=== PATIENT | male | born 1945 | race Caucasian/White ===

== ENCOUNTER → 2016-09-03 | Outpatient (CLI) | payer OTHER ==
[~2016-09-03] MED LIST: ATOR-22 PO; AVD5 PO; EPP3/2 IM; HYT/2 PO
[2016-09-03 12:58] LABS: PROSTATE SPECIFIC ANTIGEN 0.896 ng/ml (0.000-4.000)
[2016-09-03 13:41] LABS: ESTIMATED AVERAGE GLUCOSE 120 mg/dl; HA1C FLAG Normal (Normal)
--- NOTE | 2016-09-10 09:25 | CODING QUERY MEDICAL NECESSITY ---
CQSUPPORTING DIAGNOSIS NEEDED A supporting diagnosis is required for the test/procedure performed on this patient in order for us to be reimbursed by the patient's insurance. Please provide a supporting diagnosis for the following test/procedure listed below next to the test name along with your signature. *If there is no additional diagnosis for this patient that would support the following test/procedure please document that below next to the test/procedure. Test(s)/Procedure(s) that require a supporting diagnosis: DOS 09/03/16 GLYCATED HEMOGLOBIN TEST Provider Signature: Date: Thank you Arpita Lira [facility] Information Management Once completed, please kindly fax back to [phone] For questions please call [phone]
== END | disposition home or self-care (01) ==
LOC: C.LABBFT 07:32
PROVIDERS: ATTEND Internal Medicine
DX: N40.0 Benign prostatic hyperplasia without lower urinary tract symptoms (principal); R73.03 Prediabetes

== ENCOUNTER → 2016-09-24 | Outpatient (CLI) | payer OTHER ==
[2016-09-24 13:24] LABS: BLOOD UREA NITROGEN 25 mg/dl (7-18); BUN/CREATININE RATIO 22.6 (10-20); CALCIUM 9.3 mg/dl (8.5-10.1); CARBON DIOXIDE 26 mmol/L (21-32); CHLORIDE 104 mmol/L (98-107); GLUCOSE 121 mg/dl (70-99); POTASSIUM 4.2 mmol/L (3.5-5.1); SODIUM 140 mmol/L (136-145)
== END | disposition home or self-care (01) ==
LOC: C.LABBFT 07:30
PROVIDERS: ATTEND Internal Medicine
DX: I10 Essential (primary) hypertension (principal); Z11.59 Encounter for screening for other viral diseases

== ENCOUNTER → 2017-03-03 | Outpatient (CLI) | payer OTHER ==
[2017-03-03 12:11] LABS: BASO % 0.7 %; BASO ABS # 0.04 K/uL (0-0.2); COMPLETE YES; EOS % 8.8 %; HEMATOCRIT 38.2 % (42-52); IG% 0.2 %; LYMPH % 26.8 %; LYMPH ABS # 1.59 K/uL (1.2-3.4); MEAN CELL VOLUME 82.7 fL (80-100); MEAN CORPUSCULAR HEMOGLOBIN 28.1 pg (25-34); MEAN PLATELET VOLUME 10.5 fL (7.4-10.4); MONO % 8.9 %; NEUT % 54.6 %; PLATELET COUNT 282 K/uL (130-400); RED BLOOD COUNT 4.62 M/uL (4.7-6.1); WHITE BLOOD COUNT 5.93 K/uL (4.8-10.8)
[2017-03-03 12:16] LABS: URINE APPEARANCE CLEAR (CLEAR); URINE BILIRUBIN NEG (NEG); URINE COLOR YELLOW; URINE NITRITE NEG (NEG); URINE SPECIFIC GRAVITY 1.026 (1.000-1.030); UROBILINOGEN NEG (NEG); ZZUR CULT IF INDIC CLEAN CATCH NO
[2017-03-03 12:23] LABS: MANUAL MICROSCOPIC REQUIRED? NO; REVIEW REQ? NO
[2017-03-03 12:32] LABS: ESTIMATED AVERAGE GLUCOSE 123 mg/dl; HA1C FLAG Normal (Normal)
[2017-03-03 12:38] LABS: ALT/SGPT 26 U/L (12-78); AST/SGOT 16 U/L (15-37); BLOOD UREA NITROGEN 29 mg/dl (7-18); BUN/CREATININE RATIO 28.8 (10-20); CARBON DIOXIDE 26 mmol/L (21-32); CHLORIDE 108 mmol/L (98-107); CHOLESTEROL 141 mg/dl (0-200); GLUCOSE 110 mg/dl (70-99); POTASSIUM 3.8 mmol/L (3.5-5.1); SODIUM 140 mmol/L (136-145); TRIGLYCERIDES 150 mg/dl (0-150); VERY LOW DENSITY LIPOPROT CALC 30 mg/dl
[2017-03-03 12:39] LABS: ALB/GLOB RATIO 1.2 (0.9-2); ALKALINE PHOSPHATASE 98 U/L (45-117); CHOLESTEROL/HDL RATIO 3.7; HDL CHOLESTEROL 38 mg/dl; LDL CHOLESTEROL CALCULATED 73 mg/dl
== END | disposition home or self-care (01) ==
LOC: C.LABBFT 07:21
PROVIDERS: ATTEND Internal Medicine
DX: R73.03 Prediabetes (principal); E78.5 Hyperlipidemia, unspecified

== ENCOUNTER → 2017-09-08 | Outpatient (CLI) | payer OTHER ==
[2017-09-08 12:36] LABS: BASO % 0.6 %; BASO ABS # 0.04 K/uL (0-0.2); EOS % 7.2 %; EOS ABS # 0.46 K/uL (0-0.5); HEMATOCRIT 39.9 % (42-52); HEMOGLOBIN 13.7 g/dL (14.0-18.0); IG# 0.02 K/uL (0.00-0.02); LYMPH % 18.4 %; LYMPH ABS # 1.17 K/uL (1.2-3.4); MEAN CELL VOLUME 82.1 fL (80-100); MEAN CORPUSCULAR HEMOGLOBIN 28.2 pg (25-34); MEAN CORPUSCULAR HGB CONC 34.3 g/dl (32-36); MEAN PLATELET VOLUME 10.8 fL (7.4-10.4); MONO % 10.1 %; MONO ABS # 0.64 K/uL (0.11-0.59); NEUT % 63.4 %; NEUT ABS # 4.03 K/uL (1.4-6.5); PLATELET COUNT 286 K/uL (130-400); RED CELL DISTRIBUTION WIDTH CV 14.2 % (11.5-14.5); RED CELL DISTRIBUTION WIDTH SD 42.2 fL (36.4-46.3); RETIC COUNT % 1.5 % (0.5-2.0); WHITE BLOOD COUNT 6.36 K/uL (4.8-10.8)
== END | disposition home or self-care (01) ==
LOC: C.LABBFT 07:06
PROVIDERS: ATTEND Internal Medicine
DX: D64.9 Anemia, unspecified (principal); R73.03 Prediabetes

== ENCOUNTER → 2017-09-15 | Outpatient (CLI) | payer OTHER ==
--- NOTE | 2017-09-15 11:26 | DIAGNOSTIC IMAGING REPORT ---
L SHOULDER MIN 2 VIEWS ROUTINE CLINICAL HISTORY: M25.512 Shoulder pain, left pain COMPARISON: None. DISCUSSION: There are findings of degenerative changes of the articular surface of the posterior lateral aspect of the humeral head. Mild inferior osteophytic reaction from the acromion. A component of impingement may be present. There are no soft tissue calcifications. There is no evidence for soft tissue swelling. IMPRESSION: Moderate degenerative change articular services left humeral head. Inferior osteophyte from the acromion most likely creating a component of impingement The above report was generated using voice recognition software. It may contain grammatical, syntax or spelling errors. Electronically signed by: Foster Farfan M.D. 09/15/2017 11:25 AM Dictated Date/Time: 09/15/2017 11:24 AM
== END ==
LOC: C.RAD1850 11:14
PROVIDERS: ATTEND Internal Medicine
DX: M25.712 Osteophyte, left shoulder (principal)

== ENCOUNTER → 2017-09-15 | Outpatient (CLI) | payer OTHER | END | disposition home or self-care (01) | LOC: C.LABBFT 10:06 | PROVIDERS: ATTEND Internal Medicine | DX: D64.9 Anemia, unspecified (principal) ==

== ENCOUNTER → 2017-10-12 | Outpatient (CLI) | payer OTHER ==
[2017-10-12 14:25] LABS: BLOOD UREA NITROGEN 29 mg/dl (7-18); CARBON DIOXIDE 27 mmol/L (21-32); GLUCOSE 108 mg/dl (70-99); POTASSIUM 3.8 mmol/L (3.5-5.1); SODIUM 138 mmol/L (136-145)
== END | disposition home or self-care (01) ==
LOC: C.LABBFT 07:15
PROVIDERS: ATTEND Physician Assistant
DX: Z01.818 Encounter for other preprocedural examination (principal); M75.42 Impingement syndrome of left shoulder

== ENCOUNTER → 2017-10-16 | Outpatient (CLI) | payer OTHER ==
[~2017-10-16] MED LIST changes: +GADAVIST IV PRN
--- NOTE | 2017-10-16 10:19 | DIAGNOSTIC IMAGING REPORT ---
LEFT SHOULDER INJECTION UNDER FLUOROSCOPIC GUIDANCE CLINICAL HISTORY: Left shoulder pain and impingement syndrome. Injection for MR arthrogram. PROCEDURE: The risks, benefits, and alternatives to the procedure were discussed with the patient. Written informed consent was obtained. The patient was placed supine on the fluoroscopy table, and a left shoulder injection was performed under fluoroscopic guidance. The area was prepped and draped in the usual sterile fashion. The skin and soft tissues anesthetized with local 1% lidocaine. The left shoulder joint was accessed utilizing a 22-gauge needle, and approximately 7 cc of a mixture of gadolinium contrast, Optiray 300, and saline was injected into the joint space under fluoroscopic guidance. There was normal distention of the capsule. The procedure was well tolerated and without immediate complication. The patient was then transferred to MRI for MR arthrography. FLUOROSCOPY TIME: 11 seconds. IMPRESSION: Successful injection of the left shoulder under fluoroscopic guidance. Electronically signed by: Neo Diallo M.D. 10/16/2017 10:17 AM Dictated Date/Time: 10/16/2017 10:17 AM
--- NOTE | 2017-10-16 11:10 | DIAGNOSTIC IMAGING REPORT ---
MR ARTHROGRAM OF THE LEFT SHOULDER CLINICAL HISTORY: Left shoulder pain. Impingement. COMPARISON STUDY: Radiographs of the left shoulder dated 09/15/2017. TECHNIQUE: Following the intra-articular administration of gadolinium contrast, MR arthrogram of the left shoulder was performed utilizing various T1 and T2 weighted sequences in the axial, sagittal, coronal planes. FINDINGS: Rotator cuff: There is tendinopathy with full-thickness rupture of the supraspinatus tendon. There is approximately 3 cm of musculotendinous retraction. There is tendinopathy with extensive high-grade partial-thickness tearing of the infraspinatus tendon. There is full-thickness tear seen at the leading edge which measures at least 10 mm in length. There is no retraction of the infraspinatus tendon. Mild tendinopathy seen involving the subscapularis tendon. The teres minor and subscapularis tendons appear intact. Contrast is present within the subacromial and subdeltoid bursal spaces. There is productive degenerative change seen at the acromioclavicular joint. Biceps tendon: The long head of the biceps tendon is normal in signal intensity and located within the bicipital groove. The anchor is maintained. Labrum: There is a SLAP tear of the glenoid labrum. Tearing is greatest anteriorly. Shoulder joint: Joint space is well distended with intra-articular contrast. The articular cartilage over the glenoid at the humeral head appears well maintained. Mild arthritic changes present in the greater tuberosity of the humeral head. No fracture is seen. Musculature and soft tissues: The musculature of the shoulder is normal in bulk and signal intensity. No atrophy is seen. Induration of the anterior soft tissues is related to the contrast injection. IMPRESSION: 1. There is full-thickness rupture of the supraspinatus tendon with at least 3 cm of musculotendinous retraction. 2. There is tendinopathy with extensive partial thickness tearing of the infraspinatus tendon. There is full-thickness tear at the leading edge of infraspinatus. No retraction is seen. 3. There is a SLAP tear of the labrum. 4. No muscular atrophy or edema is identified. Electronically signed by: Neo Diallo M.D. 10/16/2017 11:09 AM Dictated Date/Time: 10/16/2017 11:01 AM
== END | disposition home or self-care (01) ==
LOC: C.MRIBC 09:26
PROVIDERS: ATTEND Physician Assistant
DX: M75.42 Impingement syndrome of left shoulder (principal); S46.012A Strain of muscle(s) and tendon(s) of the rotator cuff of left shoulder, initial encounter; S43.432A Superior glenoid labrum lesion of left shoulder, initial encounter; X58.XXXA Exposure to other specified factors, initial encounter

== ENCOUNTER 2020-08-07 06:36 | Observation (INO) ==
--- NOTE | 2020-07-26 09:06 | PAT Medication Instructions ---
Medication Instructions Date of Service July 26, 2020 Home Medications epinephrine [EpiPen] 0.3 mg IM Q3H PRN ferrous sulfate [Iron (ferrous sulfate)] 325 mg PO QAM acetaminophen [Tylenol] 650 mg PO QAM amlodipine 10 mg PO PM atorvastatin 40 mg PO PM finasteride 5 mg PO PM hydrochlorothiazide 25 mg PO QAM irbesartan 300 mg PO QAM omeprazole 20 mg PO QAM Continue as directed epinephrine [EpiPen] 0.3 mg IM Q3H PRN (if needed) DO NOT take the morning of surgery ferrous sulfate [Iron (ferrous sulfate)] 325 mg PO QAM hydrochlorothiazide 25 mg PO QAM irbesartan 300 mg PO QAM Take morning of surgery With a small sip of water, OTHERWISE NOTHING TO EAT OR DRINK AFTER MIDNIGHT: acetaminophen [Tylenol] 650 mg PO QAM (okay to take up to 4 hours prior to surgery if needed) omeprazole 20 mg PO QAM Take evening before surgery amlodipine 10 mg PO PM atorvastatin 40 mg PO PM finasteride 5 mg PO PM Other Notes If you have any questions please call us at [phone] or [phone] or [phone] or [phone]
--- NOTE | 2020-07-26 09:10 | Anesthesiology Consultation ---
Date of Service July 26, 2020 Assessment & Plan (1) Encounter for pre-operative examination: Chart Review Chart Review: Pending: Refer to Additional Notes / Consult section (pending CT scan results and preop Covid testing ) and Patient seen in Pre Admission Testing - Sent note to PCP re: abnormal CXR. PCP scheduling patient for CT scan of chest - will await results Per PAT appt on 07/26/20, pt resides in [facility]. Traveled to [place] for medical appt. No other noted travel. No known Covid positive contacts or Covid related symptoms. No known Covid infection in the past 90 days. Scheduled for preop Covid testing 08/01/20= will await results. Left shoulder arthroscopy, biceps tenotomy 04/09/2018 = done under [facility] with LMA #5. Atraumatic LMA insertion. No anesthesia issues noted per anesthesia record. Teaching & Discussion Pre-Anesthesia Teaching/Discussion Notes: Instructed NPO after midnight before surgery,except medications with 15 cc of water. Medication instructions provided according to the PAT guidelines. History Surgery Operation Date: 08/07/20 08:50 Proposed Procedures p Left Total Knee Arthroplasty - Rupesh Dowell MD Height/Weight Height: 5 ft 11 in Weight: 101.1 kg Allergies Allergy/AdvReac Type Severity Reaction Status Date / Time bee venom protein (honey bee) Allergy Severe ANAPHYLAXIS Verified 08/07/20 06:52 Medications Home Medications Medication Instructions Recorded Confirmed Last Taken epinephrine [EpiPen] 0.3 mg IM Q3H PRN 03/10/18 08/07/20 Unknown ferrous sulfate [Iron (ferrous 325 mg PO QAM 06/15/18 08/07/20 08/06/20 08:00 sulfate)] acetaminophen [Tylenol] 650 mg PO QAM 07/25/20 08/07/20 08/06/20 08:00 amlodipine 10 mg PO PM 07/25/20 08/07/20 08/06/20 21:00 atorvastatin 40 mg PO PM 07/25/20 08/07/20 08/06/20 21:00 finasteride 5 mg PO PM 07/25/20 08/07/20 08/06/20 21:00 hydrochlorothiazide 25 mg PO QAM 07/25/20 08/07/20 08/06/20 08:00 irbesartan 300 mg PO QAM 07/25/20 08/07/20 08/06/20 08:00 omeprazole 20 mg PO QAM 07/25/20 08/07/20 08/06/20 08:00 Active Medications Generic Name Dose Route Start Last Admin Trade Name Joelle PRN Reason Stop Dose Admin Acetaminophen 1,000 mg 08/07/20 06:00 08/07/20 07:17 Acetaminophen 500 Mg Tab PO 08/07/20 18:00 1,000 mg PREOP CAMILO Administration Famotidine 20 mg 08/07/20 06:00 08/07/20 07:16 Famotidine 20 Mg Tab PO 08/07/20 18:00 20 mg PREOP CAMILO Administration Gabapentin 300 mg 08/07/20 06:00 08/07/20 07:17 Gabapentin 300 Mg Cap PO 08/07/20 18:00 300 mg PREOP CAMILO Administration Lactated Ringer's 1,000 mls @ 15 mls/hr 08/07/20 06:00 08/07/20 07:16 Lr IV 08/07/20 18:00 15 mls/hr .Q24H CAMILO Administration Lactated Ringer's 1,000 mls @ 60 mls/hr 08/07/20 06:00 08/07/20 07:18 Lr IV 08/07/20 22:39 Not Given .[id number] CAMILO Past Medical History Medical History BPH (benign prostatic hyperplasia) GERD (gastroesophageal reflux disease) Well controlled and stable Take Omeprazole secondary to previously taking NSAIDs Hyperlipidemia Hypertension Lyme disease - TREATED- NO RESIDUAL ISSUES Multiple sclerosis DX . PT BELIEVES HE WAS MISDIAGNOSED. NO SYMPTOMS AT PRESENT. DOES NOT TAKE MEDICATION. DOES NOT FOLLOW W/ NEUROLOGIST. FEELS SYMPTOMS WERE RELATED TO LYMES DISEASE RATHER THAN MS Seen for wellness exam by PCP 05/28/20- no mention of MS Osteoarthritis Pre-diabetes DIET CONTROL Tinnitus RARE Exercise / Class Metabolic Activity II 4-5 Yardwork/Stairs/Walk up hill (ONE FLIGHT OF STAIRS - NO CHEST PAIN OR SOB ) Past Family History Family History Grandmother (Maternal) Family history of diabetes mellitus Other No family history of adverse response to anesthesia Denies family history of Prostate cancer Myocardial infarction Breast cancer Colorectal cancer Pulmonary embolism Past Surgical History Surgical History History of appendectomy History of colonoscopy W/ POLYPECTOMY History of esophagogastroduodenoscopy (EGD) History of repair of left rotator cuff History of tonsillectomy History of tooth extraction History of total right knee replacement (TKR) History of umbilical hernia repair History of wisdom tooth extraction Hx of vasectomy Past Anesthesia History No Hx of Anesthesia Complications and No Family Hx of Anesthesia Complications History of PONV No Hx of PONV and No Hx of Motion Sickness Social History Smoking Status: Never smoker Do You Dip or Chew Tobacco: No Hx Alcohol Use: Yes Alcohol type: hard liquor alcohol intake frequency: a few times a week Hx Substance Use: No substance use type: does not use Review of Systems Patient denies chest pain, shortness of breath, dyspnea on exertion, cough, wheezing, palpitations. No hx of seizures, stroke, NE, apnea/snoring. No hx of blood clots or blood transfusions Physical Exam Vital Signs Last Vital Signs Temp 37.3 C 08/07/20 06:59 Pulse 84 08/07/20 06:59 Resp 16 08/07/20 06:59 BP 149/84 H 08/07/20 06:59 Pulse Ox 95 08/07/20 06:59 VITALS BP 133/81 P 70 TEMP 98.0 SP02 96% RESP 16 Constitutional no acute distress ENMT Mouth: no TMJ clicking Thyromental Distance: > or= 3.5 Finger Breadths (3.5) Mallampati Class: II Top and bottom partial dentures Caps to top front teeth. Neck neck extension not limited Respiratory normal respiratory effort; no respiratory distress Auscultation: lungs clear to auscultation bilaterally; no wheezes Cardiovascular Rate/Rhythm: regular rate and regular rhythm Heart Sounds: no murmur Vessels: no carotid bruit Musculoskeletal Spine: + pain with cervical ROM (mild stiffness ) Extremities: extremities normal to inspection Psychiatric Orientation: alert Testing Laboratory Results 07/26/20 09:51 07/26/20 09:57 PT 10.1 Seconds (9.0-12.0) 07/26/20 09:51 INR 1.0 (0.9-1.1) 07/26/20 09:51 APTT 25.5 Seconds (21.0-31.0) 07/26/20 09:51 Blood Type AB Positive 07/26/20 09:51 Antibody Screen NEGATIVE 07/26/20 09:51 05/22/20= HGB A1C: 5.7 Electrocardiogram Date: 07/26/20 Findings: + NSR @ (66bpm) RBBB. Chest X-Ray Date: 07/26/20 Findings: + NAD and + cardiomegaly Chronic interstitial thickening is similar to previous. Scarring/atelectasis is noted at the lung bases. Question an 11 mm nodule projecting over the left upper chest. This overlies 2 ribs and may be artifactual. Correlation with a chest CT is recommended for further assessment.
--- NOTE | 2020-07-26 10:26 | XRay Report ---
SINGLE VIEW CHEST CLINICAL HISTORY: Preoperative examination FINDINGS: An AP, portable, upright chest radiograph is compared to study dated 08/30/2014. The heart is enlarged noting atherosclerotic calcification of the thoracic aorta. The pulmonary vasculature is no ncongested. Chronic interstitial thickening is similar to previous. Scarring/atelectasis is noted at the lung bases. No airspace consolidation or pleural effusion is identified. Question an 11 mm nodule projecting over the left upper chest. No pneumothorax is seen. The skeletal structures are osteopeni c. The bony thorax is grossly intact. IMPRESSION: 1. Cardiomegaly with no active disease in the chest. 2. Question an 11 mm nodule projecting over the left upper chest. This overlies 2 ribs and may be art ifactual. Correlation with a chest CT is recommended for further assessment. ACT 112: Positive. There are findings on this exam that require communication between the performing entity and the patient following Patient Test Result Information Act ([place] Act 112) guidelines. Electronically signed by: Neo Diallo M.D. 07/26/2020 10:24 AM
[2020-07-26 11:32] LABS: Basophils # (auto) 0.03 K/uL (0-0.2); Basophils % (auto) 0.4 %; Eosinophils # (auto) 0.34 K/uL (0-0.5); Eosinophils % (auto) 4.5 %; Hematocrit (blood only) 39.8 % (42-52); Hemoglobin 13.8 g/dL (14.0-18.0); Immature Granulocytes # (auto) 0.02 K/uL (0.00-0.02); Immature Granulocytes % (auto) 0.3 %; Lymphocytes # (auto) 1.04 K/uL (1.2-3.4); Lymphocytes % (auto) 13.7 %; Mean Corpuscular Hemoglobin 29.4 pg (25-34); Mean Corpuscular Hgb Conc 34.7 g/dL (32-36); Mean Corpuscular Volume 84.9 fL (80-100); Mean Platelet Volume 11.2 fL (7.4-10.4); Monocytes # (auto) 0.65 K/uL (0.11-0.59); Monocytes % (auto) 8.6 %; Neutrophils # (auto) 5.49 K/uL (1.4-6.5); Neutrophils % (auto) 72.5 %; Platelet Count 300 K/uL (130-400); RDW Coefficient of Variation 13.6 % (11.5-14.5); RDW Standard Deviation 41.6 fL (36.4-46.3); Red Blood Count 4.69 M/uL (4.7-6.1); White Blood Count 7.57 K/uL (4.8-10.8)
[2020-07-26 11:44] LABS: Partial Thromboplastin Time 25.5 Seconds (21.0-31.0); Prothrombin Time 10.1 Seconds (9.0-12.0)
[2020-07-26 13:48] LABS: BUN Creatinine Ratio 20.8 (10-20); Blood Urea Nitrogen 23 mg/dl (7-18); C Reactive Protein < 0.29 mg/dl (0-0.29); Carbon Dioxide 26 mmol/L (21-32); Chloride 106 mmol/L (98-107); Creatinine Clr Calc Pharmacy 72.7 ml/min; Est GFR (Non-African American) 67.3; Glucose 112 mg/dl (70-99); Potassium 3.9 mmol/L (3.5-5.1); Sodium 138 mmol/L (136-145)
--- NOTE | 2020-07-27 05:39 | Electrocardiogram Report ---
Test Reason : Blood Pressure : / mmHG Vent. Rate : 066 BPM Atrial Rate : 066 BPM P-R Int : 200 ms QRS Dur : 156 ms QT Int : 446 ms P-R-T Axes : 058 -13 004 degrees QTc Int : 467 ms Normal sinus rhythm Right bundle branch block Abnormal ECG When compared with ECG of 15-MAR-2018 11:16, No significant change was found Confirmed by Loco Yuen ([id number]) on 07/27/2020 5:39:13 AM Referred By: Rupesh Dowell Confirmed By:Loco Yuen
[~2020-08-07 06:36] MED LIST changes: +ACETAMINOPHEN 500 MG TAB PO SCH; -ATOR-22 PO; -AVD5 PO; +BUPIVACAINE 0.25% 30 ML VIAL ONE; +BUPIVACAINE 0.5 % 5 MG/1 ML PF 10ML VIAL ONE; +BUPIVACAINE LIPOSOME/PF 266 MG, BUPIVACAINE/EPINEPHRINE 50 ML, SODIUM CHLORIDE 0.9% 30 ... INFIL SCH; -EPP3/2 IM; +FAMOTIDINE 20 MG TAB PO SCH; +GABAPENTIN 300 MG CAP PO SCH; -GADAVIST IV PRN; -HYT/2 PO; +LR 500ML BOLUS, THEN 15ML/HR IV SCH; +LR 60ML/HR IV SCH; +TRANEXAMIC ACID 1,000 MG x 1 **For Topical Use TOP SCH; +ceFAZolin 2000MG 2,000 MG/15 ML SYR IV SCH
[2020-08-07] MEDS ORDERED: TRANEXAMIC ACID / 0.7% NACL 1000MG/100ML BAG IV ONE (06:47)
--- NOTE | 2020-08-07 06:57 | History & Physical Bridge Note ---
Date of Service August 07, 2020 History & Physical Bridge Note I have examined the patient, reviewed the History & Physical and in the interval since the performance of the History & Physical I have noted the following changes of clinical significance: no changes noted
[2020-08-07] MEDS ORDERED: fentaNYL citrate 100 MCG/2 ML VIAL ONE ×2 (08:34→09:34)
[2020-08-07] MEDS ORDERED: MIDAZOLAM HCL 1 MG/ML 2ML VIAL ONE (08:34)
[2020-08-07] MEDS ORDERED: BACITRACIN INJ 50,000 UNIT VIAL ONE (08:38)
[2020-08-07] MEDS ORDERED: EPINEPHrine INJ 1 MG/ML AMP ONE (08:38)
[2020-08-07] MEDS ORDERED: SODIUM CHLORIDE 0.9% PF 50 ML VIAL ONE (08:38)
[2020-08-07] MEDS ORDERED: BUPIVACAINE LIPOSOME 1.3% 266 MG/20 ML VIAL ONE (08:38)
[2020-08-07] MEDS ORDERED: BUPIVACAINE 0.25% 30 ML VIAL ONE (08:38)
[2020-08-07] MEDS ORDERED: PROPOFOL IV EMULSION 10 MG/ML 20 ML VIAL IV ONE (08:39)
[2020-08-07] MEDS ORDERED: HYDROmorphone INJ 1 MG/ML SYRINGE IV PRN (08:50)
[2020-08-07] MEDS ORDERED: ONDANSETRON INJ 2 MG/ML 2 ML VIAL IV PRN ×2 (08:50→12:19)
[2020-08-07] MEDS ORDERED: ATROPINE SULFATE 0.1 MG/ML 10ML SYR IV PRN (08:50)
[2020-08-07] MEDS ORDERED: ePHEDrine sulfate 50 MG/ML AMP IV PRN (08:50)
[2020-08-07] MEDS ORDERED: LIDOCAINE HCL 2% 2 ML VIAL/AMP(20MG/ML) INFIL ONE (09:28)
[2020-08-07] MEDS ORDERED: ONDANSETRON INJ 2 MG/ML 2 ML VIAL ONE (09:28)
[2020-08-07] MEDS ORDERED: PHENYLEPHRINE HCL 10 MG/ML VIAL ONE (09:49)
--- NOTE | 2020-08-07 10:57 | Operative Report ---
Post Operative Report Pre & Post Diagnosis Operation Date: 08/07/20 08:50 Pre-Op Diagnosis: Left Knee Osteoarthritis Post-Op Diagnosis: Left Knee Osteoarthritis I identified the patient and participated in the time-out.: Yes Procedure Operation Date: 08/07/20 08:50 Actual Procedures p Left Total Knee Arthroplasty, Cemented(Left) - Rupesh Dowell MD Surgeon Rupesh Dowell MD Fermentation Engineer REBECCA Steven Estimated Blood Loss 50 Findings Consistent with Post-Op Diagnosis Operative findings revealed advanced left knee DJD. He had extensive and diffuse grade 4 changes of the medial and patellofemoral compartments. The lateral compartment was fairly well spared. He had a fixed varus deformity to his knee. Moderate-sized joint effusion. Osteophytes in the medial and patellofemoral compartments. Fluids 600 cc. Specimens Left knee sent for pathology. Drains 9. Anesthesia Type General Regional Complications none Disposition Accompanied Patient To Recovery: No Disposition: Recovery Room Indications Patient is a 75-year-old fairly active gentleman said a long history of knee problems. He has right knee replaced about 8 years ago. Over the past several years he is developed increased pain discomfort in his left knee. Is been through extensive conservative treatment which has not helped in the past. He elected to total knee arthroplasty. Description of Procedure Operative implants consist of: 1 Biomet Vanguard size 70 left posterior stabilized femoral component. 2. Biomet size 79 tibial tray. 3. 12 mm posterior stabilized polyethylene insert. 4. 34 x 8 and half all polypatella. The patient was taken to the operating identified and placed on the operating table supine position but all contact areas were properly padded. IV antibiotics tried by anesthesia team. A general anesthetic was implemented at the patient's request. And abductor canal block had been provided in the holding area. A left thigh turn was then placed. Left lower extremities and prepped draped in usual sterile fashion. The left leg was elevated exsanguinated with use of an Esmarch and tourniquet placed at 300 mmHg. An anterior approach to the left knee was then performed to longitudinal incision centered over the patella. Sharp dissection was carried through subcutaneous tissue down the extensor mechanism. A medial parapatellar arthrotomy incision was made. Some subperiosteal dissection was carried out medially. The fat pad was resected from each patella tendon. Lateral patellofemoral ligament was released. Patella subluxated laterally knee was flexed with the osteophyte taken off distal femur. The ACL and PCL were then released from the distal femur and the tibia subluxated anteriorly. The external tibial alignment jig was then placed in the interface the tibia and adjusted 16 mm medially. Proximal tibial cut was made remove about a millimeter bone from most efficient aspect medial side. This did take a fairly large piece off laterally. The tibia sized to a size 79. Some osteophytes were taken off medial and posterior medially. Attention drawn the femur. The distal femur turned the sharp drill. Intramedullary canal was suction. A left 6 degree valgus cutting guide was placed. Distal femoral cutting block was pinned in place. Distal femoral cut was made to take an additional 3 mm bone off distal femur. The femur was then sized to a size 70. The AP cutting block was pinned parallel to the epicondylar axis which was 4 degrees of external rotation. The anterior cut, anterior chamfer, posterior cut, posterior chamfer cuts were made. Box cutting guide was placed and adjusted slightly laterally. The box cut was made. The knee was flexed. The remnants of medial lateral menisci were excised. The osteophytes were taken off the posterior aspect of the femur. A trial femoral component was placed. The tibial tray was pinned in maximum external rotation and the drill and stem punch were used to create defect in proximal tibia for the tibial tray. Knee was then trialed with a 12 mm insert fit most appropriately. Attention drawn the patella. The patella was cleaned of all soft tissues. Patella thickness measured 24 mm in thickness was cut down to 14. Was sized to a size 34 patella. Lug holes were drilled for the 34 patella. The lateral osteophyte was removed. Patella button was placed. Knee was taken through range of motion and the patella tracked nicely with no thumbs test. Attention drawn to placing permanent components. All trial components were removed. A bone plug was placed in the distal femur limit blood loss. A double batch Palacos G cement was mixed. A Biomet Vanguard size 70 left posterior stabilized femoral component, size 79 tibial tray, 12 mm posterior stabilized polyethylene insert, and a 34 x 8 and half all polypatella were then cemented in place. Knee was brought out in full extension total cement hardened. Final cement checkup then performed. The pericapsular tissues were injected with total 100 cc of combination of 20 cc of Exparel, 30 cc normal saline, 50 cc of quarter percent Marcaine with epinephrine. Patient did receive 1 g tranexamic acid. The tourniquet was then let down for final tourniquet time of 61 minutes. Hemostasis assured use electrocautery. The extensor Maxon was then closed with a combination 1 PDS suture #1 Vicryl suture in [id number] fashion. Extensor mechanism checked found to be intact with subcutaneous tissue then closed with 2 Dexon suture in a buried interrupted fashion skin was closed skin tamiko. Leg was then cleaned dried and a sterile dressing both Xeroform, 4 x 4's, sterile cast padding, Denilson bandage were applied. Patient was then brought out of general anesthesia and transferred to the recovery room in stable condition. Patient tolerated procedure well and there were no complications. Fan Steven, my physician client account assistant, was present for the entire procedure. His assistance was essential and required for appropriate patient positioning, prepping and draping, surgical exposure, performing the technical details of the operation, placement the implants, closure of the wound, and placement of the sterile bandage. I attest to the content of the Intraoperative Record and any orders documented therein. Any exceptions are noted below.
--- NOTE | 2020-08-07 11:07 | XRay Report ---
XR knee LT 1 or 2V routine CLINICAL HISTORY: Surgical Post Op COMPARISON: None. DISCUSSION: There are postsurgical changes of a total left knee arthroplasty and patellar resurfacing . Femoral and tibial components appear well seated. Overlying surgical drains are evident. There is g as within the soft tissues consistent with recent surgery IMPRESSION: Postsurgical changes of a total left knee arthroplasty. ACT 112: Negative or not required by law. Electronically signed by: Michael Andino M.D. 08/07/2020 11:05 AM
[2020-08-07] MEDS: fentaNYL citrate 100 MCG/2 ML VIAL IV PRN ×2 (11:26→11:31)
[2020-08-07] MEDS ORDERED: traMADol HCL 50 MG TABLET PO PRN (12:19)
[2020-08-07] MEDS ORDERED: METOCLOPRAMIDE HCL INJ 5 MG/ML 2 ML VIAL IV PRN (12:19)
[2020-08-07] MEDS ORDERED: MAGNESIUM HYDROXIDE SUSP 30 ML UDC PO PRN (12:19)
[2020-08-07] MEDS ORDERED: ALUMINUM/MAGNESIUM SUSP 30 ML UDC PO PRN (12:19)
[2020-08-07] MEDS ORDERED: bisacodyL 10 MG SUPP PR PRN (12:19)
[2020-08-07] MEDS ORDERED: NALOXONE HCL 0.4 MG/1 ML VIAL/CARP IV PRN (12:19)
[2020-08-07] MEDS ORDERED: HYDROmorphone INJ 0.5 MG/0.5 ML SYR IV PRN (12:19)
--- NOTE | 2020-08-07 12:25 | Anesthesiology Progress Note ---
Date of Service August 07, 2020 Anesthesia Post Procedure Vital Signs Vital Signs: Temp Pulse Pulse Resp BP Pulse Ox 08/07/20 12:00 36.6 C 79 18 129/80 100 08/07/20 11:40 76 14 120/69 98 08/07/20 11:30 72 19 126/71 98 08/07/20 11:20 68 12 118/70 98 08/07/20 11:10 67 16 118/71 99 08/07/20 11:00 36.3 C L 73 14 115/75 97 08/07/20 06:59 37.3 C 84 16 149/84 H 95 Pain Intensity Left Knee: Pain Intensity: 4 Transfer of Care Handoff Completed per policy Notes Mental Status: alert / awake / arousable and participated in evaluation Nausea / Vomiting: adequately controlled Pain: adequately controlled Airway Patency, RR, SpO2: stable & adequate BP & HR: stable & adequate Hydration State: stable & adequate Neuraxial Anesthesia: was administered and sensory block is resolving Anesthetic Complications: no major complications apparent and Pt Satisfied with anesthetic care
--- NOTE | 2020-08-07 12:29 | Anesthesiology Progress Note ---
Date of Service August 07, 2020 Anesthesia Post Procedure Vital Signs Vital Signs: Temp Pulse Pulse Resp BP Pulse Ox 08/07/20 12:00 36.6 C 79 18 129/80 100 08/07/20 11:40 76 14 120/69 98 08/07/20 11:30 72 19 126/71 98 08/07/20 11:20 68 12 118/70 98 08/07/20 11:10 67 16 118/71 99 08/07/20 11:00 36.3 C L 73 14 115/75 97 08/07/20 06:59 37.3 C 84 16 149/84 H 95 Pain Intensity Left Knee: Pain Intensity: 4 Transfer of Care Handoff Completed per policy Notes Mental Status: alert / awake / arousable and participated in evaluation Patient Amnestic to Procedure: Yes Nausea / Vomiting: adequately controlled Pain: adequately controlled Airway Patency, RR, SpO2: stable & adequate BP & HR: stable & adequate Hydration State: stable & adequate Anesthetic Complications: no major complications apparent and Pt Satisfied with anesthetic care
[2020-08-07] MEDS: SODIUM CHLORIDE 0.9% 1000ML 1,000 ML IV SCH ×2 (12:53→22:51)
[2020-08-07] MEDS: KETOROLAC TROMETHAMINE 15 MG/ML VIAL IV SCH ×3 (12:58→23:27)
[2020-08-07] MEDS: ACETAMINOPHEN 500 MG TAB PO SCH ×2 (13:47→21:11)
[2020-08-07] MEDS: TAMSULOSIN HCL 0.4 MG CAP PO SCH (13:47)
[2020-08-07] MEDS: ceFAZolin 2000MG 2,000 MG/15 ML SYR IV SCH ×2 (16:02→23:27)
[2020-08-07] MEDS ORDERED: TRANEXAMIC ACID / 0.7% NACL 1,000 MG/100 ML BAG IV SCH (16:50)
[2020-08-07] MEDS: ASCORBIC ACID 500 MG TAB PO SCH (17:10)
[2020-08-07] MEDS: FERROUS GLUCONATE 324 MG TAB PO SCH (17:11)
[2020-08-07] MEDS ORDERED: ATORVASTATIN 40 MG TAB PO SCH (21:00)
[2020-08-07] MEDS ORDERED: amLODIPine BESYLATE 5 MG TAB PO SCH (21:00)
[2020-08-07] MEDS ORDERED: FINASTERIDE 5 MG TAB PO SCH (21:00)
[2020-08-07] MEDS ORDERED: SENNA 8.6 MG TAB PO SCH (21:00)
[2020-08-07] MEDS: ASPIRIN 81 MG ECTAB PO SCH (21:11)
[2020-08-07] MEDS: DOCUSATE SODIUM 100 MG CAP PO SCH (21:11)
[2020-08-08] MEDS: ACETAMINOPHEN 500 MG TAB PO SCH ×2 (05:48→14:58)
[2020-08-08] MEDS: KETOROLAC TROMETHAMINE 15 MG/ML VIAL IV SCH ×2 (05:48→11:40)
[2020-08-08 07:10] LABS: Hematocrit (blood only) 33.8 % (42-52); Hemoglobin 11.8 g/dL (14.0-18.0); Mean Corpuscular Hemoglobin 29.6 pg (25-34); Mean Corpuscular Hgb Conc 34.9 g/dL (32-36); Mean Corpuscular Volume 84.7 fL (80-100); Mean Platelet Volume 10.1 fL (7.4-10.4); Platelet Count 232 K/uL (130-400); RDW Coefficient of Variation 13.5 % (11.5-14.5); RDW Standard Deviation 41.1 fL (36.4-46.3); Red Blood Count 3.99 M/uL (4.7-6.1); White Blood Count 7.34 K/uL (4.8-10.8)
[2020-08-08 07:39] LABS: BUN Creatinine Ratio 18.9 (10-20); Creatinine Clr Calc Pharmacy 65.3 ml/min; Est GFR (African American) 67.9; Est GFR (Non-African American) 58.6; Potassium 4.1 mmol/L (3.5-5.1)
[2020-08-08] MEDS ORDERED: dexAMETHasone 4 MG TAB PO SCH (08:00)
[2020-08-08] MEDS: ASPIRIN 81 MG ECTAB PO SCH (08:56)
[2020-08-08] MEDS: TAMSULOSIN HCL 0.4 MG CAP PO SCH (08:56)
[2020-08-08] MEDS: DOCUSATE SODIUM 100 MG CAP PO SCH (08:57)
[2020-08-08] MEDS: ASCORBIC ACID 500 MG TAB PO SCH (08:58)
[2020-08-08] MEDS: FERROUS GLUCONATE 324 MG TAB PO SCH (08:58)
[2020-08-08] MEDS ORDERED: NON-FORMULARY MEDICATION (Ferrous Sulfate [Iron (Ferrous Sulfate)] 325 mg (65 mg iron) Tab PO SCH (09:00)
[2020-08-08] MEDS ORDERED: hydroCHLOROthiazide 25 MG TAB PO SCH (09:00)
[2020-08-08] MEDS ORDERED: PANTOprazole 40 MG TAB PO SCH (09:00)
[2020-08-08] MEDS ORDERED: MULTIVITAMIN TAB PO SCH (09:00)
[2020-08-08] MEDS ORDERED: IRBESARTAN 150 MG TAB PO SCH (09:00)
--- NOTE | 2020-08-08 17:40 | Progress Notes ---
DATE: 08/08/2020 SUBJECTIVE: A 75-year-old gentleman postop day 1 from a left knee replacement. He is doing well. Moderate amount of pain, but controlled with pain medicines. Therapy is going well. He is hoping to go home. OBJECTIVE: VITAL SIGNS: Temperature 36.8. Vital signs stable. GENERAL: Shows a pleasant, middle-aged male. He is sitting up in his bedside chair, looks pretty comfortable. LUNGS: Clear to auscultation. HEART: Has a regular rate and rhythm. ABDOMEN: Soft, nontender, nondistended. EXTREMITIES: Grossly neurovascularly intact except as follows: Examination of the left leg reveals the dressing to be clean, dry, and intact. He can dorsiflex and plantarflex his foot appropriately. He has got brisk refill. He is neurologically intact. LABORATORY DATA: Hemoglobin 11.8. Hematocrit 33.8. Electrolytes are stable. ASSESSMENT: A 75-year-old gentleman postoperative day 1 from left knee replacement, doing pretty well. Pain is controlled. He is neurologically intact. PLAN: 1. DVT prophylaxis including thigh-high TEDs, SCDs, and aspirin twice a day. 2. PT/OT. Weightbear as tolerated. Left total knee protocol. 3. Pain control, doing okay with current pain regimen. 4. Disposition: Plan to discharge to home. He is going to go to outpatient therapy.
--- NOTE | 2020-08-13 06:58 | Discharge Summary ---
Date of Service August 13, 2020 Discharge Data Consultations 08/07/20 12:19 Consult Case Management - Discharge Planning Routine Procedures Performed Operation Date: 08/07/20 08:50 Actual Procedures p Left Total Knee Arthroplasty, Cemented(Left) - Rupesh Dwoell MD Hospital Course (1) Status post total left knee replacement: This patient is a 75 year old male admitted on 08/07/20 and underwent total knee arthroplasty. He tolerated the procedure well and there were no complications. Transferred to the PACU post op and later to the orthopedic floor for further care. He was given ancef for antibiotic prophylaxis. He was also given JOCELYNE stockings, SCDs, and aspirin for DVT prophylaxis. Hemoglobin, padmini tocrit, and vital signs were monitored during his hospital stay and remained stable. Did not require any blood transfusions. There were no complications during his hospital stay. By post op day #1 the patient was tolerating a regular diet, pain was reasonably controlled with oral pain medicine, and he was participating in physical therapy. On post op day #1 the patient was discharged home. He was given printed discharge instructions including prescriptions for extra strength tylenol, aspirin, and tramadol. Continue physical therapy, weight bearing as tolerated. Continue JOCELYNE stockings. Follow up approximately 2 weeks post op or sooner if there are problems or concerns. Coding Level of Care Code None Diagnoses Status post total left knee replacement Z96.652
== END 2020-08-08 15:56 | disposition home or self-care (01) ==
LOC: ASU 06:36 → 3E 06:36